=== PATIENT | female | born 1970 | race Caucasian/White ===

== ENCOUNTER 2017-10-10 13:45 | Observation (INO) ==
[2017-10-10] MEDS ORDERED: Azithromycin 500 MG in D5% in Water 250 ML IVPB ONE (14:12)
[2017-10-10] MEDS ORDERED: 0.9 % Sodium Chloride 1,000 ML IVC ONE ×3 (14:12→22:59)
--- NOTE | 2017-10-10 14:12 | Emergency Department Note ---
Disposition Clinical Impression: Pneumonia Disposition: Home, Self-Care Condition: Fair Referrals: NONE,PCP [Primary Care Provider] - Forms: ED Satisfaction Letter Time of Disposition: 16:09 Nausea/Vomiting/Diarrhea HPI - General Chief complaint: ED Nausea/Vomiting/Diarrhea Stated complaint: chest congestion, cough, vomiting Time Seen by Provider: 10/10/17 13:56 Source: patient, family Mode of arrival: ambulatory Limitations: no limitations Nursing Notes Reviewed: Yes Vital Signs Reviewed: Yes - History of Present Illness HPI Narrative: 47-year-old young female presents with symptoms of fever chills cough congestion apparently was diagnosed with the flu on Sunday presents to the emergency room headache fever chills cough congestion not getting any better thick yellow tenacious phlegm shortness of breath denies any blurred vision double vision loss vision denies any neck pain or neck stiffness patient states that she cannot get warm she aches all over she denies any neck pain or neck stiffness patient states that time she feels like she is choking on phlegm Onset (ago): day(s) (6) Improves with: nothing Worsens with: nonthing Associated symptoms: Reports: myalgias, cough, fever/chills, loss of appetite, malaise, shortness of breath, weakness. Denies: chest pain, diaphoresis, headaches, nausea/vomiting, dysuria, syncope - Related Data Home Medications Medication Instructions Recorded Confirmed No Known Home Drugs 11/29/15 11/29/15 Allergies Allergy/AdvReac Type Severity Reaction Status Date / Time Penicillins [PCN] Allergy Rash Verified 11/29/15 12:33 All systems ED: reviewed and negative except as stated. Review of Systems: As Per HPI Constitutional: Reports: fever, chills. Denies: weakness Eyes: Denies: eye pain, eye discharge ENT ED: Reports: throat pain, congestion Cardiovascular: Reports: other (Laryngitis). Denies: chest pain, palpitations Respiratory: Reports: cough, dyspnea, wheezes, sputum production Gastrointestinal: Denies: abdominal pain, nausea, hematochezia Genitourinary: Denies: urgency, dysuria, frequency Musculoskeletal: Denies: back pain, neck pain Integumentary: Denies: rash Neurological: Denies: headache, weakness Psychiatric: Denies: anxiety Endocrine: Denies: fatigue Hematological/Lymphatic: Denies: easy bleeding Allergic/Immunologic: Denies: facial swelling Past Medical History - Past Medical History Attestation: Yes The following information was validated with the patient. Source: patient, old records reviewed, nursing notes reviewed Medical history: Reports: other [employer] history: Reports: bilateral tubal ligation - Social History Smoking Status: Never smoker Smokeless Tobacco Status: No Alcohol use: Reports: none Drug use: Reports: none Physical Exam - General Limitations: no limitations General appearance: alert, in no apparent distress, other (ill Appearing hoarse) - Head Head exam: atraumatic, normocephalic, normal inspection - Eye Eye exam: Present: normal appearance, PERRL, EOMI - ENT ENT exam: normal exam, normal oropharynx, mucous membranes moist, TM's normal bilaterally, normal external ear exam, other - Neck Neck exam: Present: normal inspection (This is a), full ROM, trachea midline - Chest Chest inspection: Present: normal inspection, symmetric chest wall rise - Respiratory Respiratory exam: Present: wheezes, prolonged expiratory phase - Cardiovascular Cardiovascular exam: Present: regular rate, normal rhythm, normal heart sounds - Abdominal Exam Abdominal exam: Present: soft, Non-Tender, normal bowel sounds. Absent: mass, pulsatile mass - Extremities Exam Extremities exam: Present: normal inspection, full ROM, normal capillary refill. Absent: tenderness, joint swelling, calf tenderness - Back Exam Back exam: Present: normal inspection, full ROM. Absent: muscle spasm - Neurological Exam Neurological exam: Present: alert, oriented X3, CN II-XII intact, normal gait - Psychiatric Psychiatric exam: Present: normal affect, normal mood - Skin Skin exam: Present: warm, dry, intact, normal color Course Course Narrative: Patient was immediately seen and examined chest x-rays obtained with chest x- ray showing no process but the patient was are fully wheezy even after repeated aerosol treatments as result CT scan was done which actually shows that she has got a left lower lobe pneumonia and trace pericardial effusion as result patient will be admitted transferred to [facility] services of Dr. Bhat started on antibiotics in the ER Vital Signs Temperature 98 F 10/10/17 13:49 Pulse Rate 111 10/10/17 13:49 Respiratory Rate 18 10/10/17 13:49 Blood Pressure 92/63 10/10/17 13:49 O2 Sat by Pulse Oximetry 98 10/10/17 13:49 Temperature 98 F 10/10/17 13:49 Pulse Rate 106 10/10/17 15:42 Respiratory Rate 18 10/10/17 15:42 Blood Pressure 99/61 10/10/17 15:42 O2 Sat by Pulse Oximetry 99 10/10/17 15:42 Oxygen Delivery Oxygen Delivery Room Air Nausea/Vomiting/Diarrhea - MDM Narrative Medical decision making narrative: pneumonia bronchitis and influenza - Medical Records Medical records reviewed: Yes I reviewed the patient's medical records. - Lab Data Lab results reviewed: Yes I reviewed the patient's lab results. Result diagrams: 10/10/17 14:25 10/10/17 14:25 Lab Results 10/10/17 10/10/17 10/10/17 Range/Units 14:08 14:25 14:25 WBC (4.3-11.1) K/mcL RBC (3.82-4.97) M/mcL Hgb (11.5-15.4) g/dL Hct (35.3-44.9) % MCV (83.0-100.0) fL MCH (28.0-33.3) pg MCHC (31.6-35.5) g/dL RDW (11.5-14.5) % Plt Count (140-400) K/mcL MPV (9.4-12.4) fL Immature Gran % (0-4) % Seg Neutrophils % % Lymphocytes % % Monocytes % % Eosinophils % % Basophils % % Neutrophils # (1.6-8.9) K/mcL Lymphocytes # (0.6-4.6) K/mcL Monocytes # (0.0-1.3) K/mcL Eosinophils # (0.0-0.6) K/mcL Basophils # (0.0-0.2) K/mcL Platelet Estimate (Normal) PT (9.4-12.1) Seconds INR APTT 29.8 (26.0-36.0) Seconds Sodium 136 (136-145) mEq/L Potassium 4.5 (3.5-4.5) mEq/L Chloride 98 (98-109) mEq/L Carbon Dioxide 22 (19-29) mEq/L BUN 19 (7-20) mg/dL Creatinine 1.05 (0.57-1.11) mg/dL Est GFR ( Amer) > 60 (> 60) Est GFR (Non-Af Amer) 57 L (> 60) BUN/Creatinine Ratio 18 (6-26) Glucose 110 H (70-99) mg/dL Calculated Osmolality 285 (280-300) Calcium 9.0 (8.6-10.8) mg/dL Total Bilirubin 0.3 (0.2-1.2) mg/dL AST 103 H (5-34) Units/L ALT 42 (0-55) Units/L Alkaline Phosphatase 57 (38-126) Units/L Serum Total Protein 7.0 (6.0-8.3) g/dL Albumin 3.5 (3.5-5.0) g/dL Globulin 3.5 (2.4-3.5) g/dL Albumin/Globulin Ratio 1.0 L (1.1-2.2) Urine Color Yellow (Yellow) Urine Clarity Clear (Clear) Urine pH 5.5 (5.0-8.0) pH Units Ur Specific [place] >= 1.030 H (1.010-1.025) Urine Protein 30 H (Neg-Trace) mg/dL Urine Glucose (UA) Normal (Normal) mg/dL Urine Ketones 15 H (Negative) mg/dL Urine Blood Large H (Negative) Urine Nitrite Negative (Negative) Urine Bilirubin Moderate H (Negative) Urine Urobilinogen Normal (Normal) mg/dL Ur Leukocyte Esterase Negative (Negative) Urine Microscopic RBC 15-30 H (0-3) per hpf Urine Microscopic WBC 3-5 H (0-3) per hpf Ur Squamous Epith Cells Few (None-Few) per lpf Urine Bacteria Moderate H (None-Few) per hpf Hyaline Casts Moderate H (None-Few) per lpf Granular Casts Few H (None Seen) per lpf Urine Mucus Few (Few) Ur Culture Indicated? NO (NO) 10/10/17 10/10/17 Range/Units 14:25 14:25 WBC 5.7 (4.3-11.1) K/mcL RBC 4.75 (3.82-4.97) M/mcL Hgb 15.0 (11.5-15.4) g/dL Hct 43.3 (35.3-44.9) % MCV 91.2 (83.0-100.0) fL MCH 31.6 (28.0-33.3) pg MCHC 34.6 (31.6-35.5) g/dL RDW 13.2 (11.5-14.5) % Plt Count 124 L (140-400) K/mcL MPV 10.9 (9.4-12.4) fL Immature Gran % 0.7 (0-4) % Seg Neutrophils % 70.2 % Lymphocytes % 18.5 % Monocytes % 10.4 % Eosinophils % 0.0 % Basophils % 0.2 % Neutrophils # 4.0 (1.6-8.9) K/mcL Lymphocytes # 1.1 (0.6-4.6) K/mcL Monocytes # 0.6 (0.0-1.3) K/mcL Eosinophils # 0.0 (0.0-0.6) K/mcL Basophils # 0.0 (0.0-0.2) K/mcL Platelet Estimate Decreased L (Normal) PT 11.5 (9.4-12.1) Seconds INR 1.1 APTT (26.0-36.0) Seconds Sodium (136-145) mEq/L Potassium (3.5-4.5) mEq/L Chloride (98-109) mEq/L Carbon Dioxide (19-29) mEq/L BUN (7-20) mg/dL Creatinine (0.57-1.11) mg/dL Est GFR ( Amer) (> 60) Est GFR (Non-Af Amer) (> 60) BUN/Creatinine Ratio (6-26) Glucose (70-99) mg/dL Calculated Osmolality (280-300) Calcium (8.6-10.8) mg/dL Total Bilirubin (0.2-1.2) mg/dL AST (5-34) Units/L ALT (0-55) Units/L Alkaline Phosphatase (38-126) Units/L Serum Total Protein (6.0-8.3) g/dL Albumin (3.5-5.0) g/dL Globulin (2.4-3.5) g/dL Albumin/Globulin Ratio (1.1-2.2) Urine Color (Yellow) Urine Clarity (Clear) Urine pH (5.0-8.0) pH Units Ur Specific [place] (1.010-1.025) Urine Protein (Neg-Trace) mg/dL Urine Glucose (UA) (Normal) mg/dL Urine Ketones (Negative) mg/dL Urine Blood (Negative) Urine Nitrite (Negative) Urine Bilirubin (Negative) Urine Urobilinogen (Normal) mg/dL Ur Leukocyte Esterase (Negative) Urine Microscopic RBC (0-3) per hpf Urine Microscopic WBC (0-3) per hpf Ur Squamous Epith Cells (None-Few) per lpf Urine Bacteria (None-Few) per hpf Hyaline Casts (None-Few) per lpf Granular Casts (None Seen) per lpf Urine Mucus (Few) Ur Culture Indicated? (NO) - Radiology Data Radiology results reviewed: Yes I reviewed the patient's radiology results. ITS Impressions Chest X-Ray 10/10/17 14:12 IMPRESSION: No evidence for acute cardiopulmonary process. D/ / Jose Conway MD / Jose Conway MD Interpreting Provider: Jose Conway MD Chest CT 10/10/17 15:12 IMPRESSION: 1. Trace pericardial effusion 2. Focal parenchymal consolidation in the medial left lung base may represent early pneumonia 3. Possible left renal lesion warranting appropriate follow-up with renal ultrasound. D/ / Fredy Amaya MD / Fredy Amaya MD Interpreting Provider: Fredy Amaya MD Critical Care Time Critical Care Time: No
[2017-10-10 14:13] LABS: Bilirubin,Urine Moderate (Negative); Blood,Urine Large (Negative); Clarity,Urine Clear (Clear); Color,Urine Yellow (Yellow); Glucose,Urine (UA) Normal (Normal); Ketones,Urine 15 mg/dL (Negative); Leukocyte Esterase,Urine Negative (Negative); Nitrite,Urine Negative (Negative); PH,Urine 5.5 pH Units (5.0-8.0); Protein,Urine 30 mg/dL (Neg-Trace); Specific Gravity,Urine >= 1.030 (1.010-1.025); Urobilinogen,Urine Normal (Normal)
[2017-10-10 14:26] LABS: Bacteria,Urine Moderate per hpf (None-Few); Hyaline Casts,Urine Moderate per lpf (None-Few); RBC,Urine 15-30 per hpf (0-3); Squamous Epithelial Cell,Urine Few per lpf (None-Few)
[2017-10-10 14:28] LABS: Granular Casts,Urine Few per lpf (None Seen); Mucus,Urine Few (Few)
[2017-10-10 14:46] LABS: INR 1.1; Prothrombin Time 11.5 Seconds (9.4-12.1)
[2017-10-10 14:47] LABS: Basophils % 0.2 %; Hematocrit 43.3 % (35.3-44.9); Immature Granulocytes % 0.7 % (0-4); Lymphocytes # 1.1 K/mcL (0.6-4.6); Lymphocytes % 18.5 %; Mean Corpuscular HGB Conc 34.6 g/dL (31.6-35.5); Mean Corpuscular Hemoglobin 31.6 pg (28.0-33.3); Mean Corpuscular Volume 91.2 fL (83.0-100.0); Mean Platelet Volume 10.9 fL (9.4-12.4); Monocytes # 0.6 K/mcL (0.0-1.3); Monocytes % 10.4 %; Platelet Count 124 K/mcL (140-400); Red Blood Count 4.75 M/mcL (3.82-4.97); Red Cell Distribution Width 13.2 % (11.5-14.5); Segmented Neutrophils % 70.2 %
[2017-10-10 14:59] LABS: Alanine Aminotransferase 42 Units/L (0-55); Albumin 3.5 g/dL (3.5-5.0); Alkaline Phosphatase 57 Units/L (38-126); Aspartate Amino Transferase 103 Units/L (5-34); BUN/Creatinine Ratio 18 (6-26); Bilirubin,Total 0.3 mg/dL (0.2-1.2); Blood Urea Nitrogen 19 mg/dL (7-20); Carbon Dioxide 22 mEq/L (19-29); Chloride 98 mEq/L (98-109); Globulin 3.5 g/dL (2.4-3.5); Glucose 110 mg/dL (70-99); Osmolality,Calculated 285 (280-300); Potassium 4.5 mEq/L (3.5-4.5); Sodium 136 mEq/L (136-145); eGFR For African Americans > 60 (> 60); eGFR For Non-African Americans 57 (> 60)
[2017-10-10 15:06] LABS: Platelet Estimate Decreased (Normal)
[2017-10-10] MEDS: 0.9 % Sodium Chloride 1,000 ML IVC SCH ×4 (16:41→22:11)
[2017-10-10] MEDS ORDERED: Naloxone 0.4 MG/ML INJ IVP PRN (17:34)
[2017-10-10] MEDS ORDERED: Ibuprofen 400 MG TABLET PO PRN (17:34)
[2017-10-10] MEDS ORDERED: Ondansetron ODT 4 MG TAB.RAPDIS SL PRN (17:34)
[2017-10-10] MEDS ORDERED: Acetaminophen 325 MG TABLET PO PRN (17:34)
[2017-10-10] MEDS ORDERED: 0.9 % Sodium Chloride 250 ML IVC ONE (19:03)
[2017-10-10] MEDS ORDERED: 0.9 % Sodium Chloride 500 ML IVC ONE (20:30)
[2017-10-10] MEDS ORDERED: Ipratropium/Albuterol Neb 3 ML IH PRN (20:56)
[2017-10-10] MEDS ORDERED: Lactobacillus 1 EACH CAP.SPRINK PO SCH (21:47)
[2017-10-10] MEDS ORDERED: Oseltamivir Phosphate 30 MG CAPSULE PO SCH (22:00)
[2017-10-11] MEDS ORDERED: 0.9 % Sodium Chloride 500 ML IVC ONE (00:08)
[2017-10-11] MEDS ORDERED: methylPREDNISolone 125 MG/2 ML VIAL IVP ONE (00:18)
[2017-10-11] MEDS: 0.9 % Sodium Chloride 1,000 ML IVC SCH (01:29)
[2017-10-11 01:32] VITALS: BP 69/54
[2017-10-11] MEDS ORDERED: *HR* Norepinephrine 4 MG/4 ML VIAL IVC ONE (02:45)
[2017-10-11] MEDS ORDERED: D5% in Water 250 ML ONE (02:46)
[2017-10-11] MEDS: Norepinephrine 4 MG in D5% in Water 250 ML IVC SCH ×2 (03:22→03:35)
[2017-10-11] MEDS ORDERED: Doxycycline 100 MG in 0.9 % Sodium Chloride Mini Bag 100 ML IVPB SCH (06:00)
[2017-10-11] MEDS ORDERED: methylPREDNISolone 125 MG/2 ML VIAL IVP SCH (08:00)
[2017-10-11] MEDS ORDERED: cefTRIAXone 1,000 MG in Water for inj. (sterile) 20 ML 10 ML IVP SCH (15:00)
[2017-10-11] MEDS ORDERED: Azithromycin 500 MG in D5% in Water 250 ML IVPB SCH (16:00)
[2017-10-11] MEDS ORDERED: Lactobacillus 1 EACH CAP.SPRINK PO SCH (21:41)
--- NOTE | 2017-10-12 12:09 | Internal Med History&Physical ---
Date of Encounter: 10/12/17 Time of Encounter: 12:09 Assessment and Plan (1) Influenza Status: Acute Internal Medicine - H&P: HPI Chief complaint: flu Admitted From: Emergency Dept History of present illness: Ms. Davis is a 47 year old female Past Med Surg Social Fam HX - Past Medical History Medical history: other Psychiatric history: anxiety, depression - Past Surgical History Surgical History: appendectomy - Social History Smoking Status: Never smoker Smokeless Tobacco Status: No Alcohol use: none Drug use: none Internal Medicine - H&P: Meds No Known Home Drugs 11/29/15 [History] 3 Allergy/AdvReac Type Severity Reaction Status Date / Time Penicillins [PCN] Allergy Rash Verified 11/29/15 12:33 All Systems PM: A 10-system review of systems was performed and is negative for pertinent findings except as documented above in the HPI. - Constitutional Vitals: Temp Pulse Resp BP Pulse Ox 98.1 F 96 22 69/54 93 10/11/17 01:31 10/11/17 01:31 10/11/17 01:31 10/11/17 01:31 10/11/17 01:31 Internal Med - H&P Results - Labs CBC & Chem 7: 10/10/17 14:25 10/10/17 14:25
--- NOTE | 2017-10-12 12:11 | Discharge Summary ---
Date of Encounter: 10/12/17 Time of Encounter: 12:09 - Discharge Diagnosis (1) Influenza Priority: Primary Status: Acute - Discharge Medications Home Medications: No Known Home Drugs 11/29/15 [History] Allergies/Adverse Reactions: 3 Allergy/AdvReac Type Severity Reaction Status Date / Time Penicillins [PCN] Allergy Rash Verified 11/29/15 12:33 Date of admission: 10/10/17 16:27 Primary care physician: PCP NONE - Patient Status Disposition: Transfer Other Condition: Critical - Discharge Instructions Follow Up With: NONE,PCP [Primary Care Provider] - 1 week Hospital course: Ms. Davis is a 47 year old female was admitted through emergency room with the diagnosis of influenza. She had hypotension that persisted despite significant IV fluid infusion. She was transferred to [facility] for ongoing care needs before I evaluated her. - Time Spent with Patient Total time spent providing and/or coordinating discharge services: - Constitutional Vitals: Temp Pulse Resp BP Pulse Ox 98.1 F 96 22 69/54 93 10/11/17 01:31 10/11/17 01:31 10/11/17 01:31 10/11/17 01:31 10/11/17 01:31
== END 2017-10-11 03:38 | disposition short-term general hospital (02) ==
LOC: EMEROOPIK 13:45 → INPPIK 13:45
PROVIDERS: ADMIT Internal Medicine; ATTEND Internal Medicine